=== PATIENT | male | born 1960 | race Caucasian/White ===

== ENCOUNTER 2016-12-29 12:00 | Emergency (ER) | payer OTHER ==
[~2016-12-29] VITALS: Ht 180.3 cm; Wt 93.2 kg
[~2016-12-29 12:00] MED LIST: MESA1.2T2 PO; MESA4KIT2 RECTAL; PRED50TA PO
[2016-12-29 12:17] VITALS: BP 155/98; PULSE 65; RESP 15; O2SAT 98
[2016-12-29] MEDS ORDERED: oxyCODONE-Acetamin 5-325 mg Tablet PO ONE (13:40)
--- NOTE | 2016-12-29 14:10 | ED.REPORT ---
HPI-Back Pain 40 and Over Date of Service Dec 29, 2016 ED Provider: Fernando Gonzalez PA-C [place] is an otherwise healthy 56-year-old male presenting to the emergency department with a chief complaint of lower back pain. Patient reports right- sided lower back pain for approximately 5 days. 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 He reports tightening in his back that evening after and severe right lower back pain the next morning. Denies numbness, tingling, weakness or pain in lower extremity. Denies fever, DM, HIV, organ transplant, immunosuppression, recent surgery, recent infection, history of back surgery, surgical implants and IV drug use, cancer. Denies bowel/bladder dysfunction and saddle anesthesia. Denies urinary symptoms. Denies known history of AAA, admits history of smoking, now discontinued. Nursing Notes Stated Complaint: LOWER BACK PAIN Chief Complaint: Back Pain or Injury Nursing Notes Reviewed: Yes Allergies: Coded Allergies: No Known Allergies (Unverified Allergy, Unknown, 02/17/16) Scheduled Mesalamine (Lialda) 1.2 Gm Tablet.dr 2.4 GM PO DAILY Mesalamine W/Cleansing Wipes (Rowasa 4 gm/60 ml Enema Kit) 4 Gm/60 Ml Kit 4 GM RECTAL HS Prednisone (PredniSONE) 50 Mg Tablet 60 MG PO DAILY Prednisone (PredniSONE) 50 Mg Tablet 50 MG PO DAILY Scheduled PRN oxyCODONE (oxyCODONE) 5 Mg Tablet 5-10 MG PO Q4H PRN PRN For Pain General Time Seen by MD: 13:33 Chief Complaint Lumbar pain Sudden in Onset?: No Past Medical History Past Medical History Diagnosed with diverticulitis 10 years ago, sleep apnea Past Surgical History 10 inches of colon removed 7 years ago Smoking History Unknown if Ever Smoker Ambulatory Status Independent Review of Systems Review of Systems Note: Negative unless stated otherwise in history of present illness Physical Exam General: Well appearing, well developed, well nourished, no acute distress. Head: Atraumatic, normocephalic. Eyes: No scleral icterus or injection. No discharge. Vision grossly intact. ENT: Voice clear, hearing grossly intact. Respiratory: No respiratory distress, no increased work of breathing. Speaks in complete sentences. Skin: Warm and dry. Back: Normal to inspection, negative midline spinous process tenderness, positive right SI tenderness, negative CVA tenderness Neurological: Normal gait, toe walk, heel walk, Romberg. Patellar and Achilles reflexes present and equal B/L. Sensation to light touch intact at medial leg, dorsal foot and lateral foot B/L. negative seated straight leg raise, negative seated cross straight leg raise. Psychological: alert and oriented. Speech appropriate, linear and logical. Behavior appropriate. Initial Vital Signs Vital Signs (First) Date Time Temp Pulse Resp B/P Pulse Ox O2 Delivery O2 Flow Rate FiO2 12/29/16 12:17 36.6 65 15 155/98 98 Room Air Elevated blood pressure Re-Eval/Medical Decision Med Decision/Clinical Course 56-year-old male sitting in the emergency department with chief complaint of right-sided lower back pain that began insidiously after a day of heavy lifting. Physical examination is benign with a normal neurological examination normal vital signs, specifically he is afebrile. Back pain is without red flag symptoms for acute disc herniation, cauda equina, infection, hematoma, trauma, pyelonephritis, nephrolithiasis, cancer. While his history of smoking raises the likelihood that this is caused by AAA, I feel the insidious onset combined with the benign physical examination make this an unlikely etiology. I believe this is musculoskeletal back pain. I believe he is stable and safe to be discharged to home. Advised [id number] analgesia, provide a small amount of oxycodone supplement with precautions. Provided a burst of prednisone. Advised regarding primary care follow-up, provided emergency return precautions. Patient verbalized understanding of, and consent to, the plan. Discharge & Departure Impression: Primary Impression: Low back pain Chronicity: acute Back pain laterality: right Sciatica presence: without sciatica Qualified Code: M54.5 - Low back pain Disposition: Home Discharge Condition All VS Reviewed: Yes Condition: Stable Patient Instructions: Acute Low Back Pain (ED) Additional Instructions: Evaluation in the emergency department for lower back pain includes interview and physical examination, both of which are reassuring that this is not likely to represent and immediately dangerous condition. History does not suggest that this is likely to be a spinal fracture, infection or bleeding in your spine. Your neurological examination is normal, indicating there is no damage to the nerves in your back. I see no indication to perform imaging tests at this time. Treatment is largely symptomatic. Rest is important, especially for the next couple of days, but avoid total bed rest. Reasonable activity as tolerated is the best. Apply ice to the affected area 4 times a day for 20 minutes over the next 24 hours. After that you will probably find warm compresses most helpful. The pain is best treated with 500 mg of naproxen (Aleve) every 12 hours, or 1000 mg of acetaminophen (Tylenol) every 6 hours. These drugs can be taken at the same time for more severe pain. I will write a prescription for a small amount of oxycodone to be taken every 4-6 hours for pain not controlled by these other medications. Please do not drive or drink alcohol within 4 hours of taking this medication. I also write a prescription for prednisone 40 mg to be taken once a day for the next 3 days. Most of all be patient: 70-90% of people with injuries presenting like yours will resolve within 7 weeks, even without treatment. Follow-up with your primary care provider in the next week or two to be sure your recovery is progressing as expected. Return the emergency department for new or worsening symptoms such as loss of bowel/bladder control, numbness between your legs, new weakness/numbness or high fever. Referrals: David Kohc MD (PCP) EDSupervising Provider for APC: Enrike Euceda DO copies to: David Koch MD, Seth PA-C Dec 29, 2016 14:10
[2016-12-29] MEDS ORDERED: PRED50TA PO (14:11)
[2016-12-29] MEDS ORDERED: OXYC5TAB72 PO (14:11)
[2016-12-29 14:18] VITALS: BP 136/78; PULSE 82; RESP 14; O2SAT 98
== END 2016-12-29 14:21 | disposition home or self-care (01) ==
LOC: SED 12:00
DX: M54.5 Low back pain (principal); X50.0XXA Overexertion from strenuous movement or load, initial encounter; Y93.H2 Activity, gardening and landscaping; Y99.8 Other external cause status; Y92.017 Garden or yard in single-family (private) house as the place of occurrence of the external cause; Z87.19 Personal history of other diseases of the digestive system; Z90.49 Acquired absence of other specified parts of digestive tract